=== PATIENT | female | born 1990 ===

== ENCOUNTER 2022-06-21 06:54 | Inpatient (IN) | payer OTHER ==
[~2022-06-21] VITALS: Ht 160 cm; Wt 4.1 kg
[2022-06-21] MEDS ORDERED: PRENATAL TABLE1 EAC1 PO (09:49)
== END 2022-06-24 15:25 | disposition home or self-care (01) | DRG 785 ==
LOC: LDR 06:54 → O/R 18:51 → LDR 06-22 09:43 → OB/GYN 06-22 11:54
PROVIDERS: ADMIT Obstetrics & Gynecology; ATTEND Obstetrics & Gynecology
PROC: 0UB70ZZ Excision of Bilateral Fallopian Tubes, Open Approach (ICD-10-PCS; 2022-06-21)
PROC: 4A1HXCZ Monitoring of Products of Conception, Cardiac Rate, External Approach (ICD-10-PCS; 2022-06-21)
PROC: 3E033VJ Introduction of Other Hormone into Peripheral Vein, Percutaneous Approach (ICD-10-PCS; 2022-06-21)
PROC: 3E0P7VZ Introduction of Hormone into Female Reproductive, Via Natural or Artificial Opening (ICD-10-PCS; 2022-06-21)
PROC: 10D00Z1 Extraction of Products of Conception, Low, Open Approach (ICD-10-PCS; principal; 2022-06-21 17:00)
DX: O14.14 Severe pre-eclampsia complicating childbirth (principal); O36.63X0 Maternal care for excessive fetal growth, third trimester, not applicable or unspecified; Z3A.40 40 weeks gestation of pregnancy; Z37.0 Single live birth; Z30.2 Encounter for sterilization; Z20.822 Contact with and (suspected) exposure to COVID-19